=== PATIENT | male | born 1955 | race Caucasian/White ===

== ENCOUNTER → 2025-04-13 08:56 | Outpatient (CLI) | payer MEDICARE, OTHER, SELFPAY ==
[2025-04-13 10:14] LABS: Hematocrit 45.4 % (41-53); Hemoglobin 15.4 g/dL (13.5-17.5); Mean Corpuscular HGB Conc 34.0 % (30-36); Mean Corpuscular Hemoglobin 30.1 PG (26-34); Mean Corpuscular Volume 88.6 fL (80-100); Platelet Count 218 X10^3/uL (150-400)
[2025-04-13 10:48] LABS: HEMOLYSIS < 15 (0-50); Iron 154 ug/dL (49-181)
[2025-04-13 10:55] LABS: Alanine Aminotransferase 31 IU/L (<50); Albumin 4.8 g/dL (3.5-5.0); Albumin Globulin Ratio 1.8 (1.0-2.8); Alkaline Phosphatase 68 U/L (38-126); Blood Urea Nitrogen 14 mg/dL (9-20); Calcium 9.5 mg/dL (8.4-10.2); Carbon Dioxide 26 mmol/L (22-32); Chloride 104 mmol/L (98-107); Cholesterol 244 mg/dL (140-199); Estimated Glomerular Filt Rate > 60 mL/min (>60); Globulin 2.7 g/dL (1.7-4.1); Glucose 96 mg/dL (70-99); HDL Cholesterol 62 mg/dL (40-60); HEMOLYSIS < 15 (0-50); Potassium 4.5 mmol/L (3.4-5.1); Sodium 140 mmol/L (137-145); Total Protein 7.5 g/dL (6.3-8.2); Triglycerides 297 mg/dL (35-150)
[2025-04-13 11:00] LABS: Percent Iron Saturation 45 % (20-50); Total Iron Binding Capacity 342 ug/dL (261-462); Transferrin 300 mg/dL (206-381)
[2025-04-13 11:20] LABS: Vitamin D 25 Hydroxy (D3) 32.9 ng/mL (30.0-100.0)
[2025-04-13 11:23] LABS: TSH w/ Reflex to FT4 1.94 uIU/mL (0.47-4.68)
[2025-04-13 11:25] LABS: Ferritin 102 ng/mL (18-464)
[2025-04-13 11:38] LABS: Vitamin B12 Reflex MMA if <400 615 pg/mL (239-931)
[2025-04-13 16:04] LABS: HIV 1 & 2 Ab/Ag 4th Gen Combo NEGATIVE (NEGATIVE); Hep C Virus Ab w/Reflex Quant NEGATIVE s/c (NEGATIVE)
[2025-04-19 08:11] LABS: Percent Free Testosterone 2.24 % (1.50-4.20)
== END ==
PROVIDERS: PCP Family Medicine; Referring Provider Family Medicine; Visit Provider Family Medicine
DX: E66.812 Obesity, class 2 (principal); Z13.21 Encounter for screening for nutritional disorder; R20.0 Anesthesia of skin; Z68.35 Body mass index [BMI] 35.0-35.9, adult; E66.09 Other obesity due to excess calories; R20.2 Paresthesia of skin; Z13.9 Encounter for screening, unspecified; Z11.59 Encounter for screening for other viral diseases; I10 Essential (primary) hypertension; E66.9 Obesity, unspecified; N52.9 Male erectile dysfunction, unspecified
CPT/HCPCS: 36415; 80053; 80061; 82043; 82306; 82570; 82607; 82728; 83540; 83550; 84402; 84403; 84443; 85027; 86803; 87389

== ENCOUNTER → 2025-05-08 08:07 | Outpatient (CLI) | payer MEDICARE, OTHER, SELFPAY | PROVIDERS: PCP Family Medicine; Referring Provider Family Medicine; Visit Provider Family Medicine | DX: N52.9 Male erectile dysfunction, unspecified (principal) | CPT/HCPCS: 36415; 84402; 84403 ==